=== PATIENT | male | born 1980 | race African-American/Black ===

== ENCOUNTER 2017-08-01 22:31 | Inpatient (IN) | payer SELFPAY ==
[~2017-08-01] VITALS: Ht 182.9 cm; Wt 81.7 kg
[~2017-08-01 22:31] MED LIST: BENA25TA8 PO; BENZ1TAB PO; SERO300T PO; WELL150T PO
[2017-08-01 22:39] VITALS: BP 135/74; PULSE 81; RESP 18; TEMP 98; O2SAT 99
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
[2017-08-01] MEDS ORDERED: QUEtiapine FUMARATE 200 MG TAB PO ONE (23:15)
[2017-08-02 00:58] LABS: AUTOMATED NEUTROPHIL # 3.1 TH/MM3 (1.8-7.7); BASOPHIL # 0.1 TH/MM3 (0-0.2); BASOPHIL % 1.2 % (0.0-2.0); EOSINOPHIL # 0.1 TH/MM3 (0-0.4); EOSINOPHIL % 1.2 % (0.0-4.0); HEMATOCRIT 37.3 % (39.0-51.0); HEMOGLOBIN 12.5 GM/DL (13.0-17.0); LYMPH % 32.2 % (9.0-44.0); LYMPHOCYTE # 1.9 TH/MM3 (1.0-4.8); MEAN CELL VOLUME 84.8 FL (80.0-100.0); MEAN CORPUSCULAR HEMOGLOBIN 28.4 PG (27.0-34.0); MEAN CORPUSCULAR HGB CONC 33.5 % (32.0-36.0); MONO % 10.3 % (0.0-8.0); MONOCYTE # 0.6 TH/MM3 (0-0.9); NEUT % 55.1 % (16.0-70.0); PLATELET COUNT 233 TH/MM3 (150-450); RED BLOOD COUNT 4.39 MIL/MM3 (4.50-5.90); RED CELL DISTRIBUTION WIDTH 14.2 % (11.6-17.2); WHITE BLOOD COUNT 5.8 TH/MM3 (4.0-11.0)
[2017-08-02 01:00] VITALS: BP 117/68; PULSE 74; RESP 18; O2SAT 99
[2017-08-02 01:09] LABS: CHLORIDE 108 MEQ/L (98-107); SODIUM (NA) 139 MEQ/L (136-145)
[2017-08-02 01:12] LABS: ALBUMIN 3.7 GM/DL (3.4-5.0); BICARBONATE 26.3 MEQ/L (21.0-32.0); CALCIUM 8.7 MG/DL (8.5-10.1); GLUCOSE,RANDOM 127 MG/DL (74-106)
[2017-08-02 01:13] LABS: BLOOD UREA NITROGEN 14 MG/DL (7-18)
[2017-08-02 01:15] LABS: ALT (GPT) 52 U/L (12-78); AST (GOT) 42 U/L (15-37)
[2017-08-02 01:16] LABS: CREATININE 0.94 MG/DL (0.60-1.30); GLOMERULAR FILTRATION RATE 111 ML/MIN (>89)
[2017-08-02 01:17] LABS: TOTAL BILIRUBIN ADULT 0.3 MG/DL (0.2-1.0); TOTAL PROTEIN 7.8 GM/DL (6.4-8.2)
[2017-08-02 01:18] LABS: ALKALINE PHOSPHATASE 61 U/L (45-117)
[2017-08-02 01:57] VITALS: BP 108/58; PULSE 74; RESP 18; TEMP 99.1; O2SAT 95
[2017-08-02 06:51] VITALS: BP 125/56; PULSE 69; RESP 18; TEMP 98.7; O2SAT 100
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
[2017-08-02] MEDS ORDERED: MAGNESIUM HYDROXIDE SUSP 30 ML CUP PO PRN (09:45)
[2017-08-02] MEDS ORDERED: ACETAMINOPHEN 325 MG TAB PO PRN (09:45)
[2017-08-02] MEDS ORDERED: ALUMINUM/MAGNESIUM/SIMETH 30 ML CUP PO PRN (09:45)
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
[2017-08-02] MEDS ORDERED: diphenhydrAMINE HCL 50 MG CAP PO PRN (14:45)
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
[2017-08-02 17:04] VITALS: BP 144/74; PULSE 80; RESP 16; TEMP 98.3
[2017-08-02 17:33] VITALS: BP 114/71; PULSE 82; RESP 18; TEMP 98.2; O2SAT 99
[2017-08-02] MEDS ORDERED: QUEtiapine FUMARATE 200 MG TAB PO SCH (21:00)
[2017-08-03 05:51] VITALS: BP 125/64; PULSE 61; RESP 16; TEMP 97.6; O2SAT 97
[2017-08-03] MEDS: PANTOPRAZOLE SOD 20 MG DELAYED RELEASE TAB PO SCH (09:00)
--- NOTE | 2017-08-03 12:33 | HHI.PYPN ---
Subjective Remarks Patient was seen and case discussed with nursing. Patient is guarded and not cooperative with interview. He walks away after a couple minutes. Says he continues to be bothered by auditory hallucinations but will not tell me the content. He admits to suicidal ideation before admission but denies any plan or intent of hurting himself on the unit. Safety plan reviewed. Later, patient comes up to me and says he is having thoughts of hanging himself. Mental Status Examination Appearance: Disheveled, Malodorous Consciousness: Asleep, Somnolent Orientation: Person Motor Activity: Normal gait Speech: Slow, Other (low in volume and tone) Language: Adequate Fund of Knowledge: Inadequate, Poor Attention and Concentration: Easily Distracted Memory: Immediate (intact) Mood: Sad Affect: Blunt Thought Process & Associations: Other (concrete) Thought Content: Thought blocking Hallucination Type: Auditory (command hallucinations ) Delusion Type: Paranoid Suicidal Ideation: Yes Suicidal Plan: Yes Suicidal Intention: Yes Homicidal Ideation: No Homicidal Plan: No Homicidal Intention: No Insight: Fair Judgment: Impulsive Results Vitals/IOs Vital Signs Date Time Temp Pulse Resp B/P (MAP) Pulse Ox O2 Delivery O2 Flow Rate FiO2 08/03/17 05:51 97.6 61 16 125/64 (84) 97 08/02/17 06:51 Room Air Assessment & Plan Problem List: (1) Schizophrenia ICD Codes: F20.9 - Schizophrenia, unspecified Status: Acute Assessment & Plan We will order a one-to-one immediately. We will increase Seroquel to twice daily dosing. For now patient will sit in the hallway where he can be observed by the nursing team Justification for Cont. Inpt. Patient would decompensate in a less restrictive setting Woody Roger DO August 03, 2017 12:33
[2017-08-03] MEDS: LORazepam 1 MG TAB PO PRN ×2 (13:28→21:03)
[2017-08-03] MEDS: QUEtiapine FUMARATE 200 MG TAB PO SCH (21:04)
[2017-08-04 06:24] VITALS: BP 107/66; PULSE 70; RESP 18; TEMP 98.3; O2SAT 100
[2017-08-04] MEDS: PANTOPRAZOLE SOD 20 MG DELAYED RELEASE TAB PO SCH (08:50)
[2017-08-04] MEDS: QUEtiapine FUMARATE 200 MG TAB PO SCH ×2 (09:00→21:00)
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
[2017-08-04 16:57] VITALS: BP 131/63; PULSE 83; RESP 18; TEMP 99.1; O2SAT 98
[2017-08-05 06:00] VITALS: BP 122/59; PULSE 67; RESP 18; TEMP 97.9; O2SAT 97
[2017-08-05] MEDS: PANTOPRAZOLE SOD 20 MG DELAYED RELEASE TAB PO SCH (08:31)
--- NOTE | 2017-08-05 09:30 | PD.TTN ---
Patient Problems 1. Discharge planning 2. Medication compliance 3. Knowledge deficit 4. Lack of coping skills Progress Toward Goals Provider Present: Dr. Willow Borden Provider Input: Patient;s medication is being tritrated. Patient presents delusional. Will continue with treatment, Nurse(s) Input: Patient's nurse Flako reports patient is uncooperative, refused lab work this morning, delusional, paranoid, but denies suicide Psychiatric Counselors Present: Glenna Aleman [facility] Psych Therapist Input: Patient presents delusional, paranoid, seclusive. Patient denies suicidal ideation. Group Spec/RT/OT/OMALLEY Present: Vincent Pitt, JERMAN Group Spec/RT/OT/OMALLEY Input: Patient does not attent any groups Glenna Aleman [facility] August 05, 2017 09:30
--- NOTE | 2017-08-05 11:54 | HHI.PYPN ---
Subjective Remarks Patient seen and examined with nurse. Chart reviewed. Case discussed with nursing staff. Patient refused labs this morning but otherwise has been no behavioral problem. Case discussed in treatment team. On my examination today , patient reports decreasing auditory hallucinations, now just white noise or whispers. No reported CAH. He denies SI/HI. He remains somewhat paranoid. He refuses to allow us to contact anyone for collateral information when I ask. No other delusional material. He denies side effects from the Seroquel but flatly refuses to consider increasing the dose when I recommend this to him. No physical complaints. He is hopeful for discharge soon. Review of Systems ROS Limitations: Psychotic Except as stated in HPI: all other systems reviewed are Neg Mental Status Examination Appearance: Disheveled Consciousness: Alert Orientation: Person, Place (at least) Motor Activity: Normal gait Speech: Unremarkable Language: Adequate Fund of Knowledge: Inadequate Attention and Concentration: Easily Distracted Memory: Impaired (psychosis interferes) Mood: Other (Remains somewhat dysphoric) Affect: Blunt Thought Process & Associations: Intact Thought Content: Delusional Hallucination Type: None Delusion Type: Paranoid (Perhaps decreasing somewhat) Suicidal Ideation: No Suicidal Plan: No Suicidal Intention: No Homicidal Ideation: No Homicidal Plan: No Homicidal Intention: No Insight: Fair Judgment: Impulsive Results Labs Labs reviewed. Vitals/IOs Vital Signs Date Time Temp Pulse Resp B/P (MAP) Pulse Ox O2 Delivery O2 Flow Rate FiO2 08/05/17 06:00 97.9 67 18 122/59 (80) 97 08/02/17 06:51 Room Air Assessment & Plan Problem List: (1) Schizophrenia ICD Codes: F20.9 - Schizophrenia, unspecified Status: Acute Assessment & Plan I have recommended titration of Seroquel (or consideration of a different agent ) to target residual psychotic symptoms but patient has declined. I have likewise asked for the opportunity to reach out for collateral, but he has declined. Continue current Seroquel dose as ordered. Continue to monitor on the inpatient unit. Continue other medications and care as ordered. Justification for Cont. Inpt. Impairment in reality construction. Risk for decompensation in less restrictive environment. Discharge Planning Pending psychiatric stabilization Request HC Surrog/Guard Advoc?: No Problem Qualifiers (1) Schizophrenia: Qualified Codes: F20.0 - Paranoid schizophrenia Rajan Borden MD August 05, 2017 11:54
[2017-08-05 17:59] VITALS: BP 130/58; PULSE 78; RESP 18; TEMP 98; O2SAT 98
[2017-08-05] MEDS: QUEtiapine FUMARATE 200 MG TAB PO SCH (21:07)
[2017-08-06 05:53] VITALS: BP 117/59; PULSE 67; RESP 18; TEMP 98.2
[2017-08-06] MEDS ORDERED: QUET1TAB9 PO (09:11)
[2017-08-06] MEDS ORDERED: PANT20 PO (09:11)
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
[2017-08-06] MEDS: PANTOPRAZOLE SOD 20 MG DELAYED RELEASE TAB PO SCH (10:10)
== END 2017-08-06 16:40 | disposition home or self-care (01) | DRG 885 ==
LOC: PHED 22:31 → NEDA 08-02 09:41 → H260 08-02 13:00 → H270 08-03 13:00
PROVIDERS: ADMIT Psychiatry & Neurology Psychiatry; ATTEND Psychiatry & Neurology Psychiatry
DX: F20.0 Paranoid schizophrenia (principal); R45.851 Suicidal ideations; Z91.14 Patient's other noncompliance with medication regimen; F31.9 Bipolar disorder, unspecified; F17.210 Nicotine dependence, cigarettes, uncomplicated; Z91.5 Personal history of self-harm
CPT/HCPCS: 80053; 80307; 84443; 85025; 99285; Q0163

== ENCOUNTER 2017-08-24 09:51 | Inpatient (IN) | payer SELFPAY ==
[~2017-08-24] VITALS: Ht 182.9 cm; Wt 80.6 kg
[~2017-08-24 09:51] MED LIST changes: -BENA25TA8 PO; -BENZ1TAB PO; +PANT20 PO; +QUET1TAB9 PO; -SERO300T PO; -WELL150T PO
[2017-08-24] MEDS ORDERED: ACETAMINOPHEN 325 MG TAB PO PRN (10:30)
[2017-08-24] MEDS ORDERED: hydrOXYzine HCL 50 MG TAB PO PRN (10:30)
[2017-08-24] MEDS ORDERED: ALUMINUM/MAGNESIUM/SIMETH 30 ML CUP PO PRN (10:30)
[2017-08-24] MEDS ORDERED: MAGNESIUM HYDROXIDE SUSP 30 ML CUP PO PRN (10:30)
[2017-08-24] MEDS ORDERED: diphenhydrAMINE HCL 50 MG CAP PO PRN (10:30)
[2017-08-24 10:59] VITALS: BP 179/75; TEMP 98.2; O2SAT 99
[2017-08-24 11:01] VITALS: PULSE 71
[2017-08-24 16:00] VITALS: BP 129/58; PULSE 71; RESP 16; TEMP 98.9; O2SAT 99
[2017-08-25 06:28] VITALS: BP 104/59; PULSE 63; RESP 17; TEMP 97.1; O2SAT 100
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
[2017-08-25] MEDS ORDERED: BENZTROPINE MESYLATE 1 MG TAB PO PRN (09:15)
[2017-08-25] MEDS ORDERED: BENZTROPINE MESYLATE 2 MG/2 ML VIAL IM PRN (09:15)
[2017-08-25] MEDS: risperiDONE 1 MG TAB PO SCH ×2 (09:29→21:33)
--- NOTE | 2017-08-25 14:55 | RADRPT ---
EXAM DATE: 08/25/2017 2:24 PM EDT AGE/SEX: 36 years / Male INDICATIONS: Fell onto right knee 3 days ago, anterior right knee pain, pain 360degrees around knee when fully extended CLINICAL DATA: This is the patient's initial encounter. Patient reports that signs and symptoms have been present for 3 days and indicates a pain score of 6/10. MEDICAL/SURGICAL HISTORY: None. None. COMPARISON: No prior [facility] exams available for comparison. FINDINGS: 4 views of the right knee demonstrate no fracture or dislocation. Moderate to large joint effusion is present. There is an osteophyte on the inferior pole of the patella. No soft tissue abnormality or r adiopaque foreign body is identified. CONCLUSION: Moderate to large joint effusion. No fracture is identified. Electronically signed by: Presley Rogers MD 08/25/2017 2:54 PM EDT
[2017-08-25 17:13] VITALS: BP 132/63; PULSE 72; RESP 18; TEMP 98.6; O2SAT 98
[2017-08-26 06:09] VITALS: BP 99/59; PULSE 68; RESP 18; TEMP 98; O2SAT 99
[2017-08-26] MEDS: risperiDONE 1 MG TAB PO SCH (09:09)
[2017-08-26] MEDS ORDERED: BENZ0.5T PO (11:09)
[2017-08-26] MEDS ORDERED: RISP1 PO (11:09)
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
--- NOTE | 2017-08-26 13:08 | PD.CONS ---
[facility] By Dr. Borden Reason for Consult Right knee effusion Primary Care Physician No Primary Care Physician Diagnoses: History of Present Illness The patient is a 36-year-old male past medical history of peptic ulcer disease who is presenting to the hospital as a transfer under a Emery act for hearing voices and having suicidal thoughts. The patient says that a few days ago he tripped down a flight of stairs and hurt his right knee. He says he also sustained an injury to his right thumb and left elbow. He says over the past few days the right knee has been swelling and then improving. He has limited range of motion flexing the right knee. He says initially it gave way when ambulating but he said he has been doing squats and that has seemed to get better. He is wondering if he can get pain medication for his chronic pains. He states that he does not believe he is on the right psych medications. He says he believes he will have a place to stay upon leaving the hospital. Discussed with nursing at the bedside. Review of Systems Except as stated in HPI: all other systems reviewed are Neg Past Family Social History Allergies: Coded Allergies: No Known Allergies (Unverified , 09/23/15) Past Medical History Peptic ulcer disease Depression Family History The patient denies pertinent family history Social History The patient denies smoking, drinking or using illicit substances Physical Exam Vital Signs Vital Signs Date Time Temp Pulse Resp B/P (MAP) Pulse Ox O2 Delivery O2 Flow Rate FiO2 08/26/17 06:09 98.0 68 18 99/59 (72) 99 08/25/17 17:13 98.6 72 18 132/63 (86) 98 Physical Exam GENERAL: This is a well-nourished, well-developed patient, in no apparent distress. SKIN: No rashes, ecchymoses or lesions. Cool and dry. HEAD: Atraumatic. Normocephalic. No temporal or scalp tenderness. EYES: Pupils equal round and reactive. Extraocular motions intact. No scleral icterus. No injection or drainage. ENT: Nose without bleeding, purulent drainage or septal hematoma. Throat without erythema, tonsillar hypertrophy or exudate. Uvula midline. Airway patent. NECK: Trachea midline. No JVD or lymphadenopathy. Supple, nontender, no meningeal signs. CARDIOVASCULAR: Regular rate and rhythm without murmurs, gallops, or rubs. RESPIRATORY: Clear to auscultation. Breath sounds equal bilaterally. No wheezes , rales, or rhonchi. GASTROINTESTINAL: Abdomen soft, non-tender, nondistended. No hepato-splenomegaly , or palpable masses. No guarding. MUSCULOSKELETAL: Right knee with swelling medially. Nontender to palpation. Flexion is limited. NEUROLOGICAL: Awake and alert. Cranial nerves II through XII intact. Motor and sensory grossly within normal limits. Five out of 5 muscle strength in all muscle groups. Normal speech. Imaging Last Impressions Knee X-Ray 08/25/17 0000 Signed Impressions: CONCLUSION: Moderate to large joint effusion. No fracture is identified. Assessment and Plan Assessment and Plan Schizophrenia The pt reported hearing voices and having suicidal thoughts. - management per psychiatry. Right knee swelling The patient sustained an injury to his right knee on a flight of stairs. The patient reports the swelling is improving. He is able to ambulate without difficulty. X-ray reveals moderate to large joint effusion. - recommend ice, compresses and keeping right leg elevated at rest. - pain control as needed. - if swelling does not continue to improve would recommend an outpt MRI of the knee. - outpt follow-up with orthopedic surgery recommended. PPx: Ambulation Discussed Condition With Patient, nursing Efraín Trevizo DO Aug 26, 2017 13:08
== END 2017-08-26 15:15 | disposition home or self-care (01) | DRG 885 ==
LOC: H270 09:51
PROVIDERS: ADMIT Psychiatry & Neurology Psychiatry; ATTEND Psychiatry & Neurology Psychiatry
DX: F28 Other psychotic disorder not due to a substance or known physiological condition (principal); R45.851 Suicidal ideations; F20.9 Schizophrenia, unspecified; F60.2 Antisocial personality disorder; D64.9 Anemia, unspecified; M25.461 Effusion, right knee; Z59.0 Homelessness; Z76.5 Malingerer [conscious simulation]; Z91.14 Patient's other noncompliance with medication regimen; Z91.5 Personal history of self-harm
CPT/HCPCS: 73564